=== PATIENT | male | born 1950 | race Hispanic/Latino ===

== ENCOUNTER 2019-01-03 09:02 | Emergency (ER) | payer MEDICARE ==
[~2019-01-03] VITALS: Ht 167.6 cm; Wt 97.1 kg
--- NOTE | 2019-01-03 09:20 | NUR ---
ULTRASOUND STATES ONE HR ETA.
--- NOTE | 2019-01-03 09:29 | NUR ---
LIPASE TO MAIN LAB
[2019-01-03] MEDS ORDERED: ONDANSETRON HCL INJ 2MG/ML 2ML 2 MG/ML VIAL IV STA (09:34)
[2019-01-03] MEDS ORDERED: SODIUM CHLORIDE 0.9% 1000ML 1,000 ML IV ONE (09:45)
[2019-01-03] MEDS: FAMOTIDINE 20 MG/2 ML VIAL IV SCH ×2 (09:53→10:18)
[2019-01-03] MEDS ORDERED: MORPHINE SULFATE 2 MG/ML SYR 1ML IV STA (09:53)
--- NOTE | 2019-01-03 10:28 | NUR ---
ULTRASOUND BEING DONE AT BEDSIDE
--- NOTE | 2019-01-03 10:36 | NUR ---
[employer] REPORTS PT WITH VERY FATTY LIVER AND LARGE AMT OF GAS IN BOWELS PRESENT. CONTINUING WITH TESTING.
--- NOTE | 2019-01-03 11:12 | Diagnostic Imaging Report ---
EXAM: CT ABDOMEN AND PELVIS with IV CONTRAST DATE: 01/03/2019 Time stamp on Exam: 9:45 AM INDICATION: Right lower quadrant pain COMPARISON: None TECHNIQUE: The abdomen and pelvis were scanned using a multidetector helical scanner. Coronal and sagittal reformations were obtained. Routine protocol performed. Technique modification was utilized to maintain the lowest dose possible to the patient. IV Contrast: 100 cc of Isovue-370 Oral Contrast: None Radiation Dose: Total DLP 7.85 mGy*cm Estimated effective dose: DLP x 0.015 x size factor FINDINGS: LOWER THORAX: No consolidations or mass. There is coronary artery calcification. LIVER: No masses noted. Diffuse fatty infiltration. BILIARY: The gallbladder is unremarkable. No ductal dilatation. SPLEEN: No masses PANCREAS: No masses ADRENALS: No nodules KIDNEYS: Symmetric perfusion. No enhancing masses. No hydronephrosis. Bilateral peripelvic cysts. GI TRACT: No distention, wall thickening or evidence of obstruction. The appendix is not visualized but there is no evidence of a right lower quadrant inflammatory process. VESSELS: Atherosclerotic calcification. PERITONEUM/RETROPERITONEUM: No free air or fluid LYMPH NODES: No lymphadenopathy REPRODUCTIVE ORGANS: Prostate is prominent. BLADDER: Unremarkable SOFT TISSUES: Unremarkable BONES: No suspicious bone lesions. Degenerative changes of the spine. IMPRESSION: 1. No acute abnormality within the abdomen or pelvis. 2. Diffuse hepatic steatosis. Signed by: Dr. Derik Lerma DO on 01/03/2019 11:08 AM
--- NOTE | 2019-01-03 11:20 | Diagnostic Imaging Report ---
EXAM: US GALL BLADDER-HOPD DATE: 01/03/2019 12:00 AM INDICATION:Right upper quadrant pain COMPARISON: None FINDINGS: Grayscale and color flow Doppler ultrasound of the right upper abdomen was performed. Liver: 16.3 cm span, borderline hepatomegaly. Hyperechoic hepatic parenchyma which may be seen with steatosis. No intrahepatic mass or dilatation of the biliary tree. Main portal vein 0.8 cm, nondilated, normal hepatopetal flow. Biliary: No cholelithiasis or gallbladder wall thickening. Sonographic Medina sign negative. Common bile duct 0.5 cm, normal. Pancreas: Obscured from view. Right kidney: 10.6 cm length. No hydronephrosis or contour deforming mass. Vessels: Aorta and IVC are obscured from view. Ascites: No free fluid is seen in the right upper abdomen. IMPRESSION: 1. No cholelithiasis or dilatation of the biliary tree. 2. Borderline hepatomegaly with hepatic steatosis. Signed by: Dr. Noel Ruby M.D. on 01/03/2019 11:17 AM
== END 2019-01-03 11:15 | disposition home or self-care (01) ==
LOC: FSED 09:02
DX: R10.11 Right upper quadrant pain (principal); R07.89 Other chest pain; I10 Essential (primary) hypertension; E11.9 Type 2 diabetes mellitus without complications; E78.5 Hyperlipidemia, unspecified; E66.9 Obesity, unspecified
CPT/HCPCS: 36415; 74177; 76705; 80053; 82553; 83690; 84484; 85025; 93005; 99284; J2270; J2405; J7030

== ENCOUNTER 2023-02-26 05:29 | Inpatient (IN) | payer MEDICARE ==
[2023-02-23 09:26] LABS: BASOPHILS % 0.4 % (0.0-1.0); EOSINOPHILS # (AUTO) 0.1 (0.0-0.4); EOSINOPHILS % 1.8 % (0.0-6.0); HEMATOCRIT 40.5 % (38.2-49.6); HEMOGLOBIN 13.7 g/dL (14.0-18.0); LYMPHOCYTES # (AUTO) 1.4 (1.0-3.2); MEAN CORPUSCULAR HEMOGLOBIN 30.1 pg (28-32); MEAN CORPUSCULAR HGB CONC 33.8 g/dL (31-35); MONOCYTES # (AUTO) 0.6 (0.2-0.8); MONOCYTES % 8.7 % (4.4-11.3); NEUTROPHILS # (AUTO) 4.7 (2.1-6.9); NEUTROPHILS % 68.8 % (38.7-80.0); PLATELET COUNT 255 x10e3/uL (140-360); RED BLOOD COUNT 4.55 x10e6/uL (4.3-5.7); RED CELL DISTRIBUTION WIDTH 12.9 % (11.7-14.4)
[2023-02-23 09:44] LABS: CALCIUM 9.1 mg/dL (8.4-10.2); CREATININE, SERUM 1.17 mg/dL (0.72-1.25)
[~2023-02-26] VITALS: Ht 167.6 cm; Wt 93.9 kg
[2023-02-26] VITALS (8 sets, daily range): BP systolic 93–145; BP diastolic 67–75; PULSE 61–82; RESP 17–18; TEMP 97.6–98.4; O2SAT 94–98
[~2023-02-26 05:29] MED LIST: AMLODIPINE BESYL5 MG PO; ATENOLOL50 MG PO; CRESTOR10 MG PO; FINASTERIDE5 MG PO; FLOMAX0.4 MG PO; LOSARTAN POTASS25 MG PO; METFORMIN HCL850 MG PO
[2023-02-26] MEDS ORDERED: SODIUM CHLORIDE 0.9% 1000ML 1,000 ML ONE (05:58)
[2023-02-26] MEDS ORDERED: CEFTRIAXONE 1 GM VIAL ONE (05:58)
[2023-02-26] MEDS ORDERED: GENTAMICIN 80MG/NS 100 ML 200 ML IV ONE (05:58)
[2023-02-26] MEDS ORDERED: ACETAMINOPHEN 1000 MG/100 ML 100 ML IV ONE (06:44)
[2023-02-26] MEDS ORDERED: IOPAMIDOL 610MG/1ML 300 MG/ML VIAL IV ONE (06:49)
[2023-02-26] MEDS ORDERED: FENTANYL CITRATE/PF 100MCG/2 ML INJ ONE ×2 (08:35→12:45)
[2023-02-26] MEDS ORDERED: FENTANYL CITRATE/PF 100MCG/2 ML INJ IV ONE (08:35)
[2023-02-26] MEDS ORDERED: DIPHENHYDRAMINE HCL 25 MG CAP PO PRN (09:00)
[2023-02-26] MEDS ORDERED: ACETAMINOPHEN 1000 MG/100 ML IV PRN (09:00)
[2023-02-26] MEDS ORDERED: ONDANSETRON HCL INJ 2MG/ML 2ML 2 MG/ML VIAL IV PRN (09:00)
[2023-02-26 09:11] LABS: BASOPHILS % 0.4 % (0.0-1.0); EOSINOPHILS # (AUTO) 0.1 (0.0-0.4); EOSINOPHILS % 1.1 % (0.0-6.0); HEMATOCRIT 37.4 % (38.2-49.6); LYMPHOCYTES # (AUTO) 1.8 (1.0-3.2); MEAN CORPUSCULAR HEMOGLOBIN 30.1 pg (28-32); MEAN CORPUSCULAR HGB CONC 32.1 g/dL (31-35); MEAN CORPUSCULAR VOLUME 93.7 fL (81-99); MONOCYTES # (AUTO) 0.5 (0.2-0.8); MONOCYTES % 7.6 % (4.4-11.3); NEUTROPHILS # (AUTO) 4.6 (2.1-6.9); NEUTROPHILS % 65.6 % (38.7-80.0); PLATELET COUNT 244 x10e3/uL (140-360); RED BLOOD COUNT 3.99 x10e6/uL (4.3-5.7); RED CELL DISTRIBUTION WIDTH 13.1 % (11.7-14.4)
[2023-02-26 09:25] LABS: ANION GAP 10.2 mmol/L (8-16); CREATININE, SERUM 1.13 mg/dL (0.72-1.25); POTASSIUM 4.2 mmol/L (3.5-5.1)
[2023-02-26] MEDS: ACETAMINOPHEN/CODEINE 300MG - 30MG TAB PO PRN (10:42)
[2023-02-26] MEDS: PHENAZOPYRIDINE HCL 100 MG TAB PO PRN (10:42)
[2023-02-26] MEDS: SODIUM CHLORIDE 0.9% 1000ML 1,000 ML IV SCH ×2 (10:42→23:59)
[2023-02-26] MEDS ORDERED: SUCCINYLCHOLINE CHLORIDE 20 MG/ML 10ML VIAL ONE (13:24)
[2023-02-26] MEDS ORDERED: LIDOCAINE HCL 2% LOCAL INJ 5 ML SDV VIAL INJ ONE (13:24)
[2023-02-26] MEDS ORDERED: ONDANSETRON HCL INJ 2MG/ML 2ML 2 MG/ML VIAL ONE (13:24)
[2023-02-26] MEDS ORDERED: SEVOFLURANE INHAL SOLN 250 ML PEN BTL ONE (13:24)
[2023-02-26] MEDS ORDERED: PROPOFOL IV EMULSION 10 MG/ML 20 ML VIAL ONE (13:24)
[2023-02-26] MEDS ORDERED: POVIDONE IODINE 0.05% 0.05 % ML PO ONE (13:24)
[2023-02-26] MEDS ORDERED: EPHEDRINE SULFATE INJ 50 MG/ML VIAL ONE (13:24)
[2023-02-26] MEDS: INSULIN LISPRO 100 UNIT/1 ML 3ML VIAL SQ SCH ×2 (16:06→20:14)
[2023-02-26] MEDS ORDERED: DEXTROSE 50% SYRINGE 50 ML IV PRN (16:15)
[2023-02-26] MEDS: SIMVASTATIN 20 MG TAB PO SCH (20:45)
[2023-02-27] VITALS (9 sets, daily range): BP systolic 132–173; BP diastolic 72–96; PULSE 64–79; RESP 16–18; TEMP 97.8–98.8; O2SAT 93–99
[2023-02-27 05:03] LABS: BASOPHILS % 0.3 % (0.0-1.0); EOSINOPHILS % 0.1 % (0.0-6.0); HEMATOCRIT 39.1 % (38.2-49.6); HEMOGLOBIN 12.8 g/dL (14.0-18.0); LYMPHOCYTES # (AUTO) 0.9 (1.0-3.2); LYMPHOCYTES % 6.7 % (18.0-39.1); MEAN CORPUSCULAR HGB CONC 32.7 g/dL (31-35); MEAN CORPUSCULAR VOLUME 91.6 fL (81-99); MONOCYTES % 7.8 % (4.4-11.3); NEUTROPHILS # (AUTO) 10.8 (2.1-6.9); NEUTROPHILS % 84.6 % (38.7-80.0); PLATELET COUNT 239 x10e3/uL (140-360); RED BLOOD COUNT 4.27 x10e6/uL (4.3-5.7); RED CELL DISTRIBUTION WIDTH 13.3 % (11.7-14.4)
[2023-02-27 05:32] LABS: ANION GAP 12.8 mmol/L (8-16); CALCIUM 8.5 mg/dL (8.4-10.2); CREATININE, SERUM 1.03 mg/dL (0.72-1.25); POTASSIUM 3.8 mmol/L (3.5-5.1)
[2023-02-27] MEDS: INSULIN LISPRO 100 UNIT/1 ML 3ML VIAL SQ SCH ×4 (07:30→20:46)
[2023-02-27] MEDS: AMLODIPINE BESYLATE 5 MG TAB PO SCH (09:16)
[2023-02-27] MEDS: LOSARTAN POTASSIUM 25 MG TAB PO SCH (09:16)
[2023-02-27] MEDS: TAMSULOSIN HCL 0.4 MG CAP PO SCH (09:16)
[2023-02-27] MEDS: FINASTERIDE 5 MG TAB PO SCH (09:17)
[2023-02-27] MEDS: ATENOLOL 50 MG TAB PO SCH (09:17)
[2023-02-27] MEDS: SODIUM CHLORIDE 0.9% 1000ML 1,000 ML IV SCH (12:49)
[2023-02-27] MEDS ORDERED: ONDANSETRON HCL 4 MG ORAL DISINTEGRATING TAB PO PRN (13:15)
[2023-02-27] MEDS: ACETAMINOPHEN/CODEINE 300MG - 30MG TAB PO PRN ×2 (15:09→20:48)
[2023-02-27] MEDS: PHENAZOPYRIDINE HCL 100 MG TAB PO PRN ×2 (15:09→20:52)
[2023-02-27] MEDS: SIMVASTATIN 20 MG TAB PO SCH (20:48)
[2023-02-28] MEDS: SODIUM CHLORIDE 0.9% 1000ML 1,000 ML IV SCH ×2 (00:46→14:20)
[2023-02-28 01:34] VITALS: BP 153/70; PULSE 65; RESP 18; TEMP 98.1; O2SAT 98
[2023-02-28 05:40] LABS: BASOPHILS % 0.2 % (0.0-1.0); EOSINOPHILS # (AUTO) 0.1 (0.0-0.4); EOSINOPHILS % 0.7 % (0.0-6.0); HEMATOCRIT 36.6 % (38.2-49.6); HEMOGLOBIN 12.3 g/dL (14.0-18.0); LYMPHOCYTES % 9.4 % (18.0-39.1); MEAN CORPUSCULAR HEMOGLOBIN 29.9 pg (28-32); MEAN CORPUSCULAR HGB CONC 33.6 g/dL (31-35); MEAN CORPUSCULAR VOLUME 88.8 fL (81-99); MONOCYTES % 9.4 % (4.4-11.3); NEUTROPHILS # (AUTO) 8.7 (2.1-6.9); NEUTROPHILS % 79.7 % (38.7-80.0); PLATELET COUNT 229 x10e3/uL (140-360); RED BLOOD COUNT 4.12 x10e6/uL (4.3-5.7); RED CELL DISTRIBUTION WIDTH 13.3 % (11.7-14.4)
[2023-02-28 05:54] VITALS: BP 165/86; PULSE 72; RESP 18; TEMP 97.8; O2SAT 96
[2023-02-28 06:01] LABS: ANION GAP 12.4 mmol/L (8-16); CALCIUM 8.7 mg/dL (8.4-10.2); CREATININE, SERUM 0.88 mg/dL (0.72-1.25); POTASSIUM 3.4 mmol/L (3.5-5.1)
[2023-02-28] MEDS: INSULIN LISPRO 100 UNIT/1 ML 3ML VIAL SQ SCH ×2 (07:30→11:30)
[2023-02-28 08:26] VITALS: BP 172/79; PULSE 89; RESP 18; TEMP 98.4; O2SAT 98
[2023-02-28] MEDS: TAMSULOSIN HCL 0.4 MG CAP PO SCH (09:38)
[2023-02-28] MEDS: AMLODIPINE BESYLATE 5 MG TAB PO SCH (09:38)
[2023-02-28] MEDS: FINASTERIDE 5 MG TAB PO SCH (09:38)
[2023-02-28] MEDS: LOSARTAN POTASSIUM 25 MG TAB PO SCH (09:39)
[2023-02-28] MEDS: ATENOLOL 50 MG TAB PO SCH (09:39)
[2023-02-28 09:41] VITALS: BP 172/79; PULSE 89; RESP 18; TEMP 98.4; O2SAT 98
[2023-02-28 12:10] VITALS: BP 166/87; PULSE 67; RESP 20; TEMP 97.6; O2SAT 98
[2023-02-28] MEDS ORDERED: Acetaminophen/Codeine 300-30MG PO (14:34)
[2023-02-28] MEDS ORDERED: LEVOFLOXACIN250 MG PO (14:37)
== END 2023-02-28 15:45 | disposition home or self-care (01) | DRG 667 ==
LOC: OR 05:29 → PACU V 08:54 → MED/SURG 10:02
PROVIDERS: ADMIT Internal Medicine; ATTEND Internal Medicine
PROC: 0T7D8ZZ Dilation of Urethra, Via Natural or Artificial Opening Endoscopic (ICD-10-PCS; 2023-02-26)
PROC: BT1BZZZ Fluoroscopy of Bladder and Urethra (ICD-10-PCS; 2023-02-26)
PROC: 0VT08ZZ Resection of Prostate, Via Natural or Artificial Opening Endoscopic (ICD-10-PCS; principal; 2023-02-26 06:56)
DX: N13.8 Other obstructive and reflux uropathy (principal); N41.9 Inflammatory disease of prostate, unspecified; N40.1 Benign prostatic hyperplasia with lower urinary tract symptoms; N35.919 Unspecified urethral stricture, male, unspecified site; R39.14 Feeling of incomplete bladder emptying; E78.5 Hyperlipidemia, unspecified; I10 Essential (primary) hypertension; E11.65 Type 2 diabetes mellitus with hyperglycemia; Z89.422 Acquired absence of other left toe(s)
CPT/HCPCS: 36415; 71046; 74420; 80048; 82948; 83735; 85025; 88304; 88305; 93005; 94799; C1758; J0330; J0696; J1580; J2001; J2405; J7030

== ENCOUNTER 2024-07-16 08:50 | Inpatient (IN) | payer MEDICARE ==
[2024-07-14 09:43] LABS: BASOPHILS % 0.6 % (0.0-1.0); EOSINOPHILS # (AUTO) 0.2 (0.0-0.4); EOSINOPHILS % 2.8 % (0.0-6.0); HEMATOCRIT 40.3 % (38.2-49.6); HEMOGLOBIN 12.9 g/dL (14.0-18.0); LYMPHOCYTES # (AUTO) 1.8 (1.0-3.2); LYMPHOCYTES % 24.4 % (18.0-39.1); MEAN CORPUSCULAR HEMOGLOBIN 29.1 pg (28-32); MONOCYTES # (AUTO) 0.5 (0.2-0.8); MONOCYTES % 7.5 % (4.4-11.3); NEUTROPHILS # (AUTO) 4.7 (2.1-6.9); NEUTROPHILS % 64.3 % (38.7-80.0); PLATELET COUNT 296 x10e3/uL (140-360); RED BLOOD COUNT 4.43 x10e6/uL (4.3-5.7); RED CELL DISTRIBUTION WIDTH 13.1 % (11.7-14.4); WHITE BLOOD COUNT 7.22 x10e3/uL (4.8-10.8)
[2024-07-14 10:02] LABS: ANION GAP 15.8 mmol/L (8-16); BLOOD UREA NITROGEN < 5 mg/dL (7-26); BUN/CREATININE RATIO 4 (6-25); CALCIUM 10.1 mg/dL (8.4-10.2); CARBON DIOXIDE 23 mmol/L (22-29); CHLORIDE 103 mmol/L (98-107); CREATININE, SERUM 1.19 mg/dL (0.72-1.25); EST GLOMERULAR FILTRATION RATE 65 ML/MIN (>=60); GLUCOSE 171 mg/dL (74-118); POTASSIUM 3.8 mmol/L (3.5-5.1); SODIUM 138 mmol/L (136-145)
[2024-07-16] VITALS (7 sets, daily range): BP systolic 135–160; BP diastolic 73; PULSE 60–67; RESP 16–20; TEMP 97.4–98.3; O2SAT 94–98
[~2024-07-16] VITALS: Ht 167.6 cm; Wt 96.6 kg
[~2024-07-16 08:50] MED LIST changes: +Acetaminophen/Codeine 300-30MG PO; +LEVOFLOXACIN250 MG PO
[2024-07-16] MEDS: CEFTRIAXONE 1 GM VIAL ONE (09:30)
[2024-07-16] MEDS: SODIUM CHLORIDE 0.9% 1000ML 1,000 ML ONE (09:30)
[2024-07-16] MEDS: GENTAMICIN 80MG/NS 100 ML 200 ML IV ONE (09:31)
[2024-07-16] MEDS ORDERED: IOPAMIDOL 610MG/1ML 300 MG/ML VIAL IV ONE (11:13)
[2024-07-16] MEDS ORDERED: DIPHENHYDRAMINE HCL 25 MG CAP PO PRN (11:45)
[2024-07-16] MEDS ORDERED: ACETAMINOPHEN/CODEINE 300MG - 30MG TAB PO PRN (11:45)
[2024-07-16] MEDS: ONDANSETRON HCL INJ 2MG/ML 2ML 2 MG/ML VIAL IV PRN (12:53)
[2024-07-16 13:11] LABS: BASOPHILS % 0.5 % (0.0-1.0); EOSINOPHILS # (AUTO) 0.2 (0.0-0.4); EOSINOPHILS % 2.8 % (0.0-6.0); HEMATOCRIT 40.7 % (38.2-49.6); HEMOGLOBIN 12.9 g/dL (14.0-18.0); LYMPHOCYTES # (AUTO) 1.8 (1.0-3.2); LYMPHOCYTES % 22.7 % (18.0-39.1); MEAN CORPUSCULAR HEMOGLOBIN 29.3 pg (28-32); MEAN CORPUSCULAR HGB CONC 31.7 g/dL (31-35); MEAN CORPUSCULAR VOLUME 92.5 fL (81-99); MONOCYTES # (AUTO) 0.5 (0.2-0.8); MONOCYTES % 5.8 % (4.4-11.3); NEUTROPHILS # (AUTO) 5.3 (2.1-6.9); NEUTROPHILS % 67.9 % (38.7-80.0); PLATELET COUNT 237 x10e3/uL (140-360); RED CELL DISTRIBUTION WIDTH 13.2 % (11.7-14.4); WHITE BLOOD COUNT 7.77 x10e3/uL (4.8-10.8)
[2024-07-16] MEDS: PHENAZOPYRIDINE HCL 100 MG TAB PO PRN (13:15)
[2024-07-16 13:27] LABS: ANION GAP 15.2 mmol/L (8-16); CALCIUM 9.3 mg/dL (8.4-10.2); CREATININE, SERUM 0.95 mg/dL (0.72-1.25); POTASSIUM 4.2 mmol/L (3.5-5.1)
[2024-07-16] MEDS: SODIUM CHLORIDE 0.9% 1000ML 1,000 ML IV SCH (14:42)
[2024-07-16] MEDS: DOCUSATE SODIUM 100 MG CAP PO SCH (16:52)
[2024-07-16] MEDS: SENNA-S TABLET PO SCH (16:52)
[2024-07-16] MEDS ORDERED: DEXTROSE 50% SYRINGE 50 ML IV PRN (21:30)
[2024-07-17] VITALS: BP 140/77; PULSE 63; RESP 20; TEMP 98.2; O2SAT 98
[2024-07-17] MEDS ORDERED: ACETAMINOPHEN 1000 MG/100 ML 100 ML IV ONE (03:19)
[2024-07-17] MEDS ORDERED: LIDOCAINE HCL 2% LOCAL INJ 5 ML SDV VIAL INJ ONE (03:19)
[2024-07-17] MEDS ORDERED: FENTANYL CITRATE/PF 100MCG/2 ML INJ ONE (03:19)
[2024-07-17] MEDS ORDERED: PROPOFOL IV EMULSION 10 MG/ML 20 ML VIAL ONE (03:19)
[2024-07-17] MEDS ORDERED: ONDANSETRON HCL INJ 2MG/ML 2ML 2 MG/ML VIAL ONE (03:33)
[2024-07-17] MEDS ORDERED: DEXAMETHASONE SOD PHOS INJ 4 MG/ML SDV ONE (03:33)
[2024-07-17] MEDS ORDERED: EPHEDRINE SULFATE INJ 50 MG/ML VIAL ONE (03:41)
[2024-07-17 04:00] VITALS: BP 156/70; PULSE 71; RESP 20; TEMP 97.6; O2SAT 99
[2024-07-17 05:34] LABS: BASOPHILS % 0.2 % (0.0-1.0); EOSINOPHILS % 0.2 % (0.0-6.0); HEMATOCRIT 36.3 % (38.2-49.6); LYMPHOCYTES # (AUTO) 1.1 (1.0-3.2); LYMPHOCYTES % 8.8 % (18.0-39.1); MEAN CORPUSCULAR HEMOGLOBIN 29.1 pg (28-32); MEAN CORPUSCULAR HGB CONC 33.1 g/dL (31-35); MEAN CORPUSCULAR VOLUME 88.1 fL (81-99); MONOCYTES # (AUTO) 1.2 (0.2-0.8); MONOCYTES % 9.7 % (4.4-11.3); NEUTROPHILS # (AUTO) 9.8 (2.1-6.9); NEUTROPHILS % 80.7 % (38.7-80.0); PLATELET COUNT 272 x10e3/uL (140-360); RED BLOOD COUNT 4.12 x10e6/uL (4.3-5.7); RED CELL DISTRIBUTION WIDTH 13.1 % (11.7-14.4); WHITE BLOOD COUNT 12.11 x10e3/uL (4.8-10.8)
[2024-07-17 05:53] LABS: CALCIUM 9.3 mg/dL (8.4-10.2); CREATININE, SERUM 0.89 mg/dL (0.72-1.25)
[2024-07-17] MEDS: INSULIN LISPRO 100 UNIT/1 ML 3ML VIAL SQ SCH (07:30)
[2024-07-17 08:10] VITALS: BP 183/80; PULSE 69; RESP 18; TEMP 98.1; O2SAT 98
[2024-07-17] MEDS: AMLODIPINE BESYLATE 5 MG TAB PO SCH (08:53)
[2024-07-17 08:55] VITALS: BP 183/80; PULSE 69; RESP 18; TEMP 98.1; O2SAT 98
[2024-07-17 11:38] VITALS: BP 161/75; PULSE 63; RESP 18; TEMP 98.2; O2SAT 98
== END 2024-07-17 14:54 | disposition home or self-care (01) | DRG 713 ==
LOC: OR 08:50 → PACU V 12:46 → MED/SURG 13:58
PROVIDERS: ADMIT Urology; ATTEND Urology
PROC: 0T7D8ZZ Dilation of Urethra, Via Natural or Artificial Opening Endoscopic (ICD-10-PCS; 2024-07-16)
PROC: BT10ZZZ Fluoroscopy of Bladder (ICD-10-PCS; 2024-07-16)
PROC: 0V508ZZ Destruction of Prostate, Via Natural or Artificial Opening Endoscopic (ICD-10-PCS; principal; 2024-07-16 11:25)
PROC: BT141ZZ Fluoroscopy of Kidneys, Ureters and Bladder using Low Osmolar Contrast (ICD-10-PCS; 2024-07-16 11:25)
DX: N40.3 Nodular prostate with lower urinary tract symptoms (principal); N13.8 Other obstructive and reflux uropathy; C61 Malignant neoplasm of prostate; N35.812 Other bulbous urethral stricture, male; R31.29 Other microscopic hematuria; E11.65 Type 2 diabetes mellitus with hyperglycemia; D64.9 Anemia, unspecified; D72.828 Other elevated white blood cell count; R97.21 Rising PSA following treatment for malignant neoplasm of prostate; N32.81 Overactive bladder; Q54.9 Hypospadias, unspecified; I12.9 Hypertensive chronic kidney disease with stage 1 through stage 4 chronic kidney disease, or unspecified chronic kidney disease; E11.22 Type 2 diabetes mellitus with diabetic chronic kidney disease; N18.9 Chronic kidney disease, unspecified; E11.51 Type 2 diabetes mellitus with diabetic peripheral angiopathy without gangrene; E78.5 Hyperlipidemia, unspecified; E66.9 Obesity, unspecified; Z68.34 Body mass index [BMI] 34.0-34.9, adult; Z79.899 Other long term (current) drug therapy; Z79.82 Long term (current) use of aspirin; Z79.84 Long term (current) use of oral hypoglycemic drugs
CPT/HCPCS: 36415; 71046; 74420; 80048; 82948; 83735; 85025; 88305; 93005; 94799; J0696; J1100; J1580; J2003; J2405; J7030